=== PATIENT | female | born 1960 | race Hispanic/Latino ===

== ENCOUNTER 2021-04-24 18:17 | Emergency (ER) | payer SELFPAY ==
[2021-04-24] MEDS ORDERED: Lidocaine 1% w/Epinephrine 1:100K 20 ML VIAL ONE (19:02)
[2021-04-24] MEDS ORDERED: Boostrix 0.5 ML (Tdap) VIAL ONE (19:02)
[2021-04-24] MEDS ORDERED: Bupivacaine 0.5% 10 ML VIAL ONE (19:02)
[2021-04-24] MEDS ORDERED: Lidocaine 1% (PF) 30 ML VIAL ONE (19:03)
[2021-04-24] MEDS ORDERED: Bacitracin 1 PK ONE (20:09)
== END 2021-04-24 21:08 | disposition home or self-care (01) ==
LOC: ERS 18:17
DX: S61.212A Laceration without foreign body of right middle finger without damage to nail, initial encounter (principal); W22.8XXA Striking against or struck by other objects, initial encounter
CPT/HCPCS: 12001; 90471; 90715; J2001; J3490